=== PATIENT | female | born 1955 | race Caucasian/White ===

== ENCOUNTER → 2021-08-06 | Outpatient (CLI) | payer MEDICARE ==
--- NOTE | 2021-08-06 17:09 | RAD ---
EXAM: Lower extremity arterial Doppler sonogram with ankle-brachial indices (GILBERT). HISTORY: Neuropathy. Pain. Diabetes. Peripheral vascular disease. TECHNIQUE: Doppler sonographic evaluation of the lower extremities was performed and pressure reading s were assessed. FINDINGS: Right brachial pressure: 139 mmHg Left brachial pressure: 140 mmHg Right ankle pressure (dorsalis pedis artery): 165 mmHg Right ankle pressure (posterior tibial artery): 155 mmHg Right GILBERT: 1.17 Left ankle pressure (dorsalis pedis artery): 150 mmHg Left ankle pressure (posterior tibial artery): 154 mmHg Left GILBERT: 1.10 IMPRESSION: Normal bilateral ankle-brachial indices. Electronically signed by: Siri Whitley MD (08/06/2021 5:07 PM) [id number]
== END ==
LOC: US 14:20
PROVIDERS: ATTEND Family Medicine
DX: E11.42 Type 2 diabetes mellitus with diabetic polyneuropathy (principal); M79.604 Pain in right leg; M79.605 Pain in left leg
CPT/HCPCS: 93922

== ENCOUNTER 2021-09-04 02:52 | Emergency (ER) | payer MEDICARE ==
[~2021-09-04] VITALS: Ht 167.6 cm; Wt 79.0 kg
--- NOTE | 2021-09-04 05:20 | PHYS DOC ---
Past Medical History Past Surgical History: Other Additional Past Surgical Histo: BACK SURGERY Smoking Status: Never Smoker Alcohol Use: None Adult General Chief Complaint Chief Complaint: GENERALIZED BODY ACHES HPI HPI The patient is a 66-year-old female with a history of fibromyalgia "since I was 13." States she has tried every possible medication to control her fibromyalgia symptoms and has had allergic reactions to many of them. She has a list of sushil rgies which is more than 30 items long. Ms. Mack presents to the emergency department for evaluation of fibromyalgia pain. States her usual 10/325 hydrocodone pills are not working. Was also recently prescribed amitriptyline which she states is not helping. States her pain is all over and the same as it usually is. Denies other new symptoms or concerns and specifically denies fevers, nausea or vomiting, upper respiratory congestion/rhinorrhea, cough, sore throat, shortness of breath or chest pain of any kind, abdominal pain of any kind, flank pain, midline back pain, dysuria, hematuria, polyuria or oliguria, changes in bowel habits. Patient is alert, appropriately interactive, ambulatory with a narrow, steady gait and in no acute distress. Vital signs are notable only for mild tachycardia; patient is very anxious. Review of Systems Review of Systems A 12 point review of systems was completed and was negative except where noted in HPI above. Current Medications Current Medications Current Medications Medications (Trade) Dose Ordered Sig/Jessica Start Time Stop Time Status Last Admin Dose Admin Acetaminophen/ Hydrocodone Bitart (Lortab 10/325) 1 tab 1X ONCE 09/04/21 05:30 09/04/21 05:31 Ketorolac Tromethamine (Toradol Im) 60 mg 1X ONCE 09/04/21 05:30 09/04/21 05:31 Allergies Allergies Allergies Coded Allergies Type Severity Reaction Last Updated Verified amlodipine Allergy Severe Swelling 09/04/21 Yes fentanyl Allergy Severe COUGH BLOOD 09/04/21 Yes mometasone furoate Allergy Severe BREATHING PROBLEMS 09/04/21 Yes tramadol Allergy Severe COUGH BLOOD 09/04/21 Yes zolpidem Allergy Severe COUGH BLOOD 09/04/21 Yes Iodinated Contrast Media Allergy Intermediate Rash 09/04/21 Yes adhesive tape Allergy Intermediate Rash 09/04/21 Yes budesonide Allergy Intermediate Rash 09/04/21 Yes buspirone Allergy Intermediate Rash 09/04/21 Yes carbamazepine Allergy Intermediate Rash 09/04/21 Yes cephalexin Allergy Intermediate Rash 09/04/21 Yes cyclobenzaprine Allergy Intermediate Rash 09/04/21 Yes divalproex sodium Allergy Intermediate Rash 09/04/21 Yes estrogens, conjugated Allergy Intermediate Itching 09/04/21 Yes fenofibrate Allergy Intermediate Rash 09/04/21 Yes gabapentin Allergy Intermediate Rash 09/04/21 Yes hydralazine Allergy Intermediate Rash 09/04/21 Yes hydromorphone Allergy Intermediate Rash 09/04/21 Yes lovastatin Allergy Intermediate Rash 09/04/21 Yes metformin Allergy Intermediate Rash 09/04/21 Yes methocarbamol Allergy Intermediate Rash 09/04/21 Yes nabumetone Allergy Intermediate Rash 09/04/21 Yes naproxen Allergy Intermediate TINNITUS 09/04/21 Yes orphenadrine Allergy Intermediate Rash 09/04/21 Yes povidone-iodine Allergy Intermediate Rash 09/04/21 Yes ranitidine Allergy Intermediate INSOMNIA 09/04/21 Yes simvastatin Allergy Intermediate DEPRESSION 09/04/21 Yes triamcinolone Allergy Intermediate Rash 09/04/21 Yes Estrogens Allergy Unknown 09/04/21 Yes Fish Containing Products Allergy Unknown 09/04/21 Yes Gadolinium-Containing Contrast Medi Allergy Unknown 09/04/21 Yes Penicillins Allergy Unknown 09/04/21 Yes Tfkcptl-DYZ-SgR Reductase Inhibitor Allergy Unknown 09/04/21 Yes Sulfa (Sulfonamide Antibiotics) Allergy Unknown 09/04/21 Yes Tetracyclines Allergy Unknown 09/04/21 Yes diazepam Allergy Unknown 09/04/21 Yes iodine Allergy Unknown 09/04/21 Yes lisinopril Allergy Unknown 09/04/21 Yes morphine Allergy Unknown 09/04/21 Yes oxycodone Allergy Unknown 09/04/21 Yes tetracaine Allergy Unknown 09/04/21 Yes Physical Exam Physical Exam 66-year-old female appearing nontoxic and in no acute distress. Head is normocephalic and atraumatic. Neck is supple and nontender. Oropharynx is moist. Lungs are clear to auscultation at all stations. There is a normal S1 and S2 without rubs or gallops and capillary refill is appropriate, less than 2 seconds globally. Abdomen is soft, nontender nondistended. Skin is warm and dry without cyanosis, clubbing or edema. Psychiatrically, patient demonstrates appropriate mood and affect and is alert. Evaluation of the extremities reveals BUEs and BLEs neurovascularly intact distally with strength over the 5, sensation intact light touch in all nerve distributions, radial, DP and PT pulses 2+ and equal bilaterally, capillary refill less than 2 seconds, hands and feet warm and well-perfused. No dependent peripheral edema distally. No calf tenderness swelling bilaterally. Homans test is negative bilaterally. Current Patient Data Vital Signs Vital Signs Date Time Temp Pulse Resp B/P (MAP) Pulse Ox O2 Delivery O2 Flow Rate FiO2 09/04/21 04:36 98.7 107 22 146/71 (96) 98 Room Air 98.7 Lab Values Laboratory Tests Test 09/04/21 04:12 Glucose (Fingerstick) 108 mg/dL (70-99) H EKG EKG [] Radiology/Procedures Radiology/Procedures [] Course & Med Decision Making Course & Med Decision Making Well-appearing 66-year-old female here for breakthrough fibromyalgia pain not responding to her hydrocodone pills at home. No evidence of emergency medical or psychiatric condition is identified. Patient's pain is her chronic pain which she has had for decades. I counseled the patient that the emergency department is not the right place to address issues with chronic pain. As a courtesy, I offered her a dose of any oral or intramuscular narcotic she would like, with the understanding that I will not be able to prescribe anything beyond what she is already taking. Patient requested a dose of her home hydrocodone as well as a dose of intramuscular Toradol which she has tolerated in the past. These were administered. Patient will be discharged to follow-up closely with her primary doctor and her pain management physician. Let her know that we would try to move up her establishment appointment with Dr. Smith, which is scheduled for October. She understands that if she feels worse instead of better or develops other new symptoms of concern that she should return to the emergency department immediately for reevaluation. All questions are answered. Dragon Disclaimer Dragon Disclaimer This electronic medical record was generated, in whole or in part, using a voice recognition dictation system. Departure Departure Impression: Primary Impression: Chronic pain Disposition: HOME / SELF CARE / HOMELESS Condition: STABLE Referrals: Hanny SUGGS MD (PCP) Patient Instructions: Chronic Pain Additional Instructions: Follow-up very closely with your primary care doctor and with your pain management physician as we discussed. As you are going to be establishing care with Dr. Smith, as we discussed we will try to reach him a little later this morning to see about moving your appointment up, although we are not able to make any promises. Return to the emergency department right away for worsening symptoms of any kind or with any other new symptoms of concern. Problem Qualifiers Primary Impression: Chronic pain Chronic pain type: other chronic pain Qualified Codes: G89.29 - Other chronic pain HUBER ZUNIGA MD Sep 04, 2021 05:20
[2021-09-04 05:24] VITALS: BP 125/73
[2021-09-04] MEDS ORDERED: KETOROLAC 60 MG/2 ML VIAL. IM ONE (05:30)
[2021-09-04] MEDS ORDERED: HYDROcodone/APAP 10/325 1 TAB TABLET PO ONE (05:30)
== END 2021-09-04 05:56 | disposition home or self-care (01) ==
LOC: ER 02:52
DX: G89.29 Other chronic pain (principal); Z88.0 Allergy status to penicillin; Z88.1 Allergy status to other antibiotic agents; Z88.2 Allergy status to sulfonamides; Z88.4 Allergy status to anesthetic agent; Z88.5 Allergy status to narcotic agent; Z88.6 Allergy status to analgesic agent; Z88.8 Allergy status to other drugs, medicaments and biological substances; Z91.041 Radiographic dye allergy status; Z91.013 Allergy to seafood
CPT/HCPCS: 82962; 96372; 99285; J1885